=== PATIENT | female | born 2000 | race Two or more races ===

== ENCOUNTER 2023-02-21 03:33 | Emergency (ER) | payer BC, MEDICAID ==
[2023-02-21 03:48] VITALS: O2SAT 98
[2023-02-21] MEDS ORDERED: LIDOCAINE VISCOUS 2% 15 ML ORAL SYRINGE MM STA (03:54)
[2023-02-21] MEDS ORDERED: KETOROLAC 30 MG/ML VIAL IM STA (03:54)
--- NOTE | 2023-02-21 03:57 | ED Physician Documentation ---
PD HPI HEENT - Stated complaint Stated Complaint: JAW/MOUTH PX - Chief complaint Chief Complaint: Heent - History obtained from History obtained from: Patient - Additional information Additional information: 23yF presents to the ED with oral lesion to roof of mouth since yesterday, throbbing/aching and keeping her awake tonight. Review of Systems Constitutional: denies: Fever Throat: reports: Oral lesions / sores. 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 : None HEENT: None Psych: Depression Musculoskeletal: Scoliosis Derm: None - Past Surgical History Past Surgical History: No - Present Medications Home Medications: Ambulatory Orders Medication Instructions Recorded Confirmed Ketorolac [Toradol] 10 mg PO Q6H PRN #20 tablet 02/21/23 QUEtiapine [SEROquel] 100 mg PO QPM 02/21/23 02/21/23 Venlafaxine HCl 3 bag PO DAILY 02/21/23 02/21/23 - Allergies Allergies/Adverse Reactions: Allergies Allergy/AdvReac Type Severity Reaction Status Date / Time azithromycin [From Zithromax] Allergy vomiting Verified 02/21/23 03:41 - Social History Does the pt smoke?: No Smoking Status: Never smoker Does the pt drink ETOH?: No Does the pt have substance abuse?: No - Immunizations Immunizations are current?: Yes - POLST Patient has POLST: No PD ED PE NORMAL - Vitals Vital signs reviewed: Yes - General General: Alert and oriented X 3, No acute distress, Well developed/nourished - HEENT HEENT: Atraumatic, PERRL, EOMI, Moist mucous membranes, Pharynx benign, Other (left posterior hard palate with raised blister-like lesion, ttp) Results - Vitals Vitals: Vital Signs - 24 hr 02/21/23 03:37 Temperature 36.8 C Heart Rate 90 Respiratory 16 Rate Blood Pressure 125/73 O2 Saturation 98 Oxygen O2 Source Room air PD Medical Decision Making - ED course ED course: 23yF presents to the ED with blister like lesion to left hard palate of mouth. toradol IM and oral lidocaine provided with relief. Rx sent to pharmacy. plan to f/u pcp. return precautions given. Departure - Departure Disposition: 01 Home, Self Care Clinical Impression: Oral lesion Condition: Good Instructions: Lesions Oral Follow-Up: IVET HAUSER [Physician No Access] - Prescriptions: Ketorolac [Toradol] 10 mg PO Q6H PRN #20 tablet PRN Reason: Pain Comments: You were seen in the emergency department for a spot on the roof of the throat. Electronic prescription for pain medicine sent to [facility]. Please follow-up with your primary care provider for referral to ENT and return to the emergency department if you have any new or worsening symptoms or other concerns.
[2023-02-21 04:41] VITALS: BP 127/71
== END 2023-02-21 04:33 | disposition home or self-care (01) ==
LOC: ED 03:33
DX: K13.70 Unspecified lesions of oral mucosa (principal)
CPT/HCPCS: 96372; 99283

== ENCOUNTER 2023-07-22 08:00 | Outpatient (CLI) | payer BC | END 2023-07-22 23:59 | disposition home or self-care (01) | LOC: LAB.N 08:00 | PROVIDERS: ATTEND Physician Assistant Medical | DX: N30.00 Acute cystitis without hematuria (principal) | CPT/HCPCS: 87086 ==